=== PATIENT | male | born 2000 | race Caucasian/White ===

== ENCOUNTER 2023-11-16 11:12 | Emergency (ER) | payer OTHER, SELFPAY ==
[2023-11-16 11:26] VITALS: BP 125/72; PULSE 92; RESP 18; TEMP 36.6; O2SAT 98
--- NOTE | 2023-11-16 11:45 | ED.EAR ---
HPI - Ear Problem General Chief complaint: Ear Stated complaint: left ear/jaw pain Time Seen by Provider: 11/16/23 11:32 Source: patient and RN notes reviewed Mode of arrival: ambulatory Limitations: no limitations History of Present Illness HPI Narrative: Patient presents today complaining of left ear pain since last night with muffled hearing. Denies any additional symptoms to include cough, sore throat, congestion rhinorrhea. States he has been swimming in the [place] last weekend. Currently rates his pain 6/10 and has tried ibuprofen with some mild relief. Related Data Allergies Allergy/AdvReac Type Severity Reaction Status Date / Time Penicillins Allergy Unknown Verified 10/15/16 10:13 Cat Dander Allergy Unknown Uncoded 10/15/16 10:13 Review of Systems Review of Systems: CONSTITUTIONAL: Denies body aches, fever, chills, or sweats. EYES: Denies visual changes, redness, or discharge. ENT: Denies rhinorrhea, congestion, sore throat. + left ear pain CARDIOVASCULAR: Denies chest pain, palpitations, or edema. RESPIRATORY: Denies cough or dyspnea. GASTROINTESTINAL: Denies abdominal pain, nausea, vomiting, or diarrhea. GENITOURINARY: Denies dysuria or hematuria. SKIN: Denies rash, itching, or wounds. MUSCULOSKELETAL: Denies back pain, joint pain, or myalgia. NEUROLOGIC: Denies headache, numbness, tingling, or weakness. PSYCH: Denies depression or anxiety. [facility] Comments At time of signature, I have reviewed and agree with nursing past medical, surgical, social and family history unless otherwise noted. Please see nursing chart for further information. There is no relevant family history pertinent to the presenting complaint Exam Narrative: GENERAL: Well-appearing, well-nourished, and in no acute distress. HEAD: Normocephalic, atraumatic. EYES: EOMI. No redness or drainage. Conjunctivae normal. ENT: Mucous membranes pink and moist. Nares clear. No rhinorrhea. Left ear: Tragal tenderness and severe swelling of the ear canal. TM not visualized. See procedure note. Right ear normal. NECK: Normal AROM. CHEST: No respiratory distress. EXTREMITIES: Normal range of motion. No edema. SKIN: Warm, dry, no rash. Capillary refill normal. Normal skin turgor. NEURO: No focal deficits. Alert and oriented x3. Gait steady. PSYCH: Normal affect. No signs of depression or anxiety. Course Course Level of Care: Express Care Visit Vital Signs Vital signs: Vital Signs Temperature 97.8 F 11/16/23 11:26 Pulse Rate 92 11/16/23 11:26 Respiratory Rate 18 11/16/23 11:26 Blood Pressure 125/72 11/16/23 11:26 Pulse Oximetry 98 11/16/23 11:26 Oxygen Delivery Room Air 11/16/23 11:26 Temperature 97.8 F 11/16/23 11:26 Pulse Rate 92 11/16/23 11:26 Respiratory Rate 18 11/16/23 11:26 Blood Pressure 125/72 11/16/23 11:26 Pulse Oximetry 98 11/16/23 11:26 Oxygen Delivery Room Air 11/16/23 11:26 Reviewed Procedures Other Procedure Procedure 1: Other Procedure: An ear wick was placed in left ear using [place] forceps to open the canal. Two drops of saline were used to expand the wick. Patient tolerated procedure well. Medical Decision Making MDM Narrative Medical decision making narrative: Patient was diagnosed with left otitis externa. Ear wick placed. Prescription for Ciprodex sent to pharmacy. Anticipatory guidance given. Differential Diagnosis Differential Diagnosis: Otitis media, otitis externa, ruptured TM, serous otitis, cerumen impaction Vital Signs Vital Signs: Vital Signs Temperature 97.8 F 11/16/23 11:26 Pulse Rate 92 11/16/23 11:26 Respiratory Rate 18 11/16/23 11:26 Blood Pressure 125/72 11/16/23 11:26 Pulse Oximetry 98 11/16/23 11:26 Oxygen Delivery Room Air 11/16/23 11:26 Temperature 97.8 F 11/16/23 11:26 Pulse Rate 92 11/16/23 11:26 Respiratory Rate 18 11/16/23 11:26 Blood Pressure 125/72 05
== END 2023-11-16 11:50 | disposition home or self-care (01) ==
PROVIDERS: Emergency Provider Nurse Practitioner
DX: H60.92 Unspecified otitis externa, left ear (principal)
CPT/HCPCS: 99213; G0463

== ENCOUNTER 2023-11-17 10:16 | Emergency (ER) | payer OTHER, SELFPAY ==
[2023-11-17 10:25] VITALS: BP 147/99; PULSE 110; RESP 18; TEMP 37.2; O2SAT 98
[2023-11-17] MEDS: AZITHROMYCIN 250 MG TABLET 500 MG PO (12:44)
[2023-11-17] MEDS: OFLOXACIN 0.3% OPHTH SOLN 5 ML BTL 3 DROP EACH EAR (12:44)
[2023-11-17] MEDS: HYDROcodone/acetaminophen (*CRX) 5-325 MG TABLET 1 TAB PO (13:02)
--- NOTE | 2023-11-17 13:08 | ED.EAR ---
HPI - Ear Problem General Chief complaint: Ear Stated complaint: ear infection Time Seen by Provider: 11/17/23 11:53 History of Present Illness HPI Narrative: 23-year-old male present to the ED for evaluation for worsening left ear pain. Patient was treated for otitis externa at [facility] and started on antibiotic drops. Patient states the wick fell out and he feels worsening left ear pain. Patient has been taking ibuprofen for pain control without significant improvement. Related Data Allergies Allergy/AdvReac Type Severity Reaction Status Date / Time Penicillins Allergy Unknown Unknown Verified 11/17/23 11:25 Cat Dander Allergy Unknown Sneezing Uncoded 11/17/23 11:25 Review of Systems Review of Systems: All systems reviewed & are unremarkable except as noted in HPI and below Exam Narrative: APPEARANCE: Well appearing, no pain, no distress, well-nourished. HEAD: normocephalic, atraumatic. EYES: PERRLA/EOMI, conjunctivae clear. NOSE: Normal no drainage EARS: Left-sided otitis externa, unable to visualize TM on left, posterior auricular tenderness with no mastoid tenderness THROAT: Pharynx clear, no exudate. NECK: Supple. No adenopathy, no masses. RESPIRATORY: Airway patent, respirations nonlabored. Clear to auscultation bilaterally, no rales, rhonchi, wheezing. CARDIOVASCULAR: Regular rate and rhythm without murmurs rubs or gallops. ABDOMINAL: Soft, nontender, nondistended, normal bowel sounds MUSCULOSKELETAL: Moves all extremities. Strength/ROM intact, No edema, No calf tenderness. NEURO: Alert. Cranial nerves II through XII intact. Grossly intact SKIN: Warm, dry. Normal Color Course Vital Signs Vital signs: Vital Signs Temperature 98.9 F 11/17/23 10:25 Pulse Rate 110 H 11/17/23 10:25 Respiratory Rate 18 11/17/23 10:25 Blood Pressure 147/99 H 11/17/23 10:25 Pulse Oximetry 98 11/17/23 10:25 Temperature 98.9 F 11/17/23 10:25 Pulse Rate 110 H 11/17/23 10:25 Respiratory Rate 18 11/17/23 10:25 Blood Pressure 147/99 H 11/17/23 10:25 Pulse Oximetry 98 11/17/23 10:25 Medical Decision Making MDM Narrative Medical decision making narrative: 23-year-old male presenting the ED for evaluation for persistent otitis externa. Patient has significant otitis externa in TM is not visualized. With the complaint of worsening left ear pain patient is being started on oral antibiotics for possible otitis media. Patient is weak was replaced and patient was treated with a dose of ofloxacin and the emergency department. Patient was discharged to home with instructions to continue his home antibiotic in addition to the p.o. azithromycin. Patient was also provided additional medications for pain control. Differential Diagnosis Differential Diagnosis: Otitis externa, otitis media, mastoiditis, otalgia Vital Signs Vital Signs: Vital Signs Temperature 98.9 F 11/17/23 10:25 Pulse Rate 110 H 11/17/23 10:25 Respiratory Rate 18 11/17/23 10:25 Blood Pressure 147/99 H 11/17/23 10:25 Pulse Oximetry 98 11/17/23 10:25 Temperature 98.9 F 11/17/23 10:25 Pulse Rate 110 H 11/17/23 10:25 Respiratory Rate 18 11/17/23 10:25 Blood Pressure 147/99 H 11/17/23 10:25 Pulse Oximetry 98 11/17/23 10:25 Discharge Plan Discharge Clinical Impression: Otitis externa, Otitis media Patient Disposition: Home, Self-Care Condition: Stable Instructions: Antibiotic Form, Swimmer's Ear (AC), Ear Infection (AC) Additional Instructions: Continue your antibiotic drops as directed. Start taking the azithromycin as directed until completed. Have close follow-up with your primary care physician. Profound for pain control, Corona as needed for additional pain control. Prescriptions: New azithromycin 250 mg tablet See Rx Instructions .ROUTE .COMPLEX Qty: 6 0RF Rx Instructions: For 250 mg dose pack: take 500 mg today (day 1), then 250 mg for 4 days (days 2-5)
== END 2023-11-17 13:19 | disposition home or self-care (01) ==
PROVIDERS: Emergency Provider Emergency Medicine
DX: H60.90 Unspecified otitis externa, unspecified ear (principal); H66.90 Otitis media, unspecified, unspecified ear
CPT/HCPCS: 99283; A9270

== ENCOUNTER 2024-11-10 09:29 | Emergency (ER) | payer OTHER, SELFPAY ==
[2024-11-10 09:37] VITALS: BP 143/82; PULSE 85; RESP 16; TEMP 36.7; O2SAT 95
--- NOTE | 2024-11-10 09:45 | ED.EAR ---
HPI - Ear Problem General Chief complaint: Ear Stated complaint: Right Ear Irritation Time Seen by Provider: 11/10/24 09:45 Source: patient Mode of arrival: ambulatory Limitations: no limitations History of Present Illness HPI Narrative: Wyatt is a 24-year-old male patient presenting to the clinic today with complaints of right ear pain x1 day. [place] developed pain yesterday. States the pain is sharp and feels as though his ear is closing off. Rates his pain at 5/10. Has not taken anything for pain. No known drainage coming from the ear. States that the pain is radiating into his jaw. Related Data Allergies Allergy/AdvReac Type Severity Reaction Status Date / Time Penicillins Allergy Unknown Unknown Verified 11/10/24 09:39 Cat Dander Allergy Unknown Sneezing Uncoded 11/10/24 09:39 Review of Systems Review of Systems: Pertinent positives per HPI. Patient denies any fever, chills, rash, headache, visual changes, dizziness, cough, runny nose, sore throat, shortness of breath, chest pain, palpitations, nausea, vomiting, diarrhea, constipation, abdominal pain, or any urinary issues. [facility] Comments At the time of my signature, I reviewed and agree with the nursing past medical, surgical, social, and family history. There is no relevant family history pertinent to the patient complaint. Exam Narrative: General: Well-developed, morbidly obese, in no apparent distress Head: Normocephalic, atraumatic Eyes: Pupils equally round and reactive to light bilaterally, EOM intact, sclera and conjunctive clear, no discharge, lids normal Ears: Left TM intact and clear, left ear canal clear, no drainage, right TM intact and clear, right ear canal almost swollen shut-redness and swelling with some green mucopurulent discharge, tenderness to palpation over the tragus and pulling of the pinna, grossly hearing normal. Nose: Nares patent, no discharge, no inflammation, no sinus tenderness. Mouth: Oropharynx without lesions or masses, good dentition, MMM. Neck: Supple, trachea midline, no enlargement of anterior or posterior cervical nodes, no thyroid masses or goiter palpable. Cardio: Regular rate and rhythm, s1 and s2 normal, no murmur appreciated. Resp: Clear to auscultation bilaterally anteriorly and posteriorly, no rhonchi, rales, wheezing or rubs Course Course Emergency Course: Portions of this record may have been created with voice recognition software. Level of Care: Express Care Visit Vital Signs Vital signs: Vital Signs Temperature 36.7 C 11/10/24 09:37 Pulse Rate 85 11/10/24 09:37 Respiratory Rate 16 11/10/24 09:37 Blood Pressure 143/82 H 11/10/24 09:37 Pulse Oximetry 95 11/10/24 09:37 Oxygen Delivery Room Air 11/10/24 09:37 Temperature 36.7 C 11/10/24 09:37 Pulse Rate 85 11/10/24 09:37 Respiratory Rate 16 11/10/24 09:37 Blood Pressure 143/82 H 11/10/24 09:37 Pulse Oximetry 95 11/10/24 09:37 Oxygen Delivery Room Air 11/10/24 09:37 Vital signs reviewed Medical Decision Making MDM Narrative Medical decision making narrative: At the time of visit patient is resting comfortably on the exam table. Patient appears to be nontoxic. C/o Right ear pain x1 day. [place] developed pain yesterday. States the pain is sharp and feels as though his ear is closing off. Rates his pain at 5/10. Has not taken anything for pain. No known drainage coming from the ear. States that the pain is radiating into his jaw. On exam patient has tenderness to palpation over the tragus and pulling of the pinna as well as redness and swelling (alomst swollen shut) with some green mucopurulent discharge in the right ear canal. Ear wick was placed in the right ear canal using an alligator forceps Plan: Patient has right otitis externa. Ear wick was placed. Rx for Ciprodex sent to the pharmacy. Prescription for Ciprodex was sent to the pharmacy. Supportive measures were discussed with the patient and they voiced understanding discharge instructions and agrees to treatment plan. Return precautions reviewed Differential Diagnosis Differential Diagnosis: Otitis media, otitis sternum, eustachian tube dysfunction, cerumen impaction, upper respiratory infection, serous otitis Vital Signs Vital Signs: Vital Signs Temperature 36.7 C 11/10/24 09:37 Pulse Rate 85 11/10/24 09:37 Respiratory Rate 16 11/10/24 09:37 Blood Pressure 143/82 H 11/10/24 09:37 Pulse Oximetry 95 11/10/24 09:37 Oxygen Delivery Room Air 11/10/24 09:37 Temperature 36.7 C 11/10/24 09:37 Pulse Rate 85 11/10/24 09:37 Respiratory Rate 16 11/10/24 09:37 Blood Pressure 143/82 H 11/10/24 09:37 Pulse Oximetry 95 11/10/24 09:37 Oxygen Delivery Room Air 11/10/24 09:37 Discharge Plan Discharge Clinical Impression: Otitis externa Qualifiers: Otitis externa type: diffuse Chronicity: acute Laterality: right Qualified Code(s): H60.311 - Diffuse otitis externa, right ear Patient Disposition: Home Condition: Stable Instructions: Antibiotic Form, Mireya's Ear (ED) Additional Instructions: Ear wick placed in the right ear canal- this should fall out on its own but if it does not you can come back and have it removed after your treatment is completed Take any prescribed medications only as directed-Ciprodex Tylenol/motrin as per bottle directions as needed for pain May use heating pad to alleviate pain If you get recurrent ear infections it may be warranted to follow up with ENT. Follow up with your PCP in 3-5 days if symptoms persist. Patient Language: E[place] Prescriptions: New ciprofloxacin-dexamethasone 0.3-0.1 % drops,suspension 4 drp RIGHT EAR Q12H 7 Days Qty: 7.5 0RF No Action ciprofloxacin-dexamethasone 0.3-0.1 % drops,suspension 4 drp LEFT EAR Q12H 7 Days Qty: 7.5 0RF azithromycin 250 mg tablet See Rx Instructions .ROUTE .COMPLEX Qty: 6 0RF Rx Instructions: For 250 mg dose pack: take 500 mg today (day 1), then 250 mg for 4 days (days 2-5) hydrocodone-acetaminophen 5-325 mg tablet 1 tablet PO Q12H PRN (Reason: pain) Qty: 14 0RF Follow-up/Referrals: PHYSICIAN,ELECTION ASSISTANT [Primary Care Provider] - Stand Alone Forms: Work/School Release IP Time of Disposition: 09:52 Quality NIHSS Nursing Documentation ED NIHSS nursing documentation: reviewed/agree
== END 2024-11-10 09:56 | disposition home or self-care (01) ==
PROVIDERS: Emergency Provider Nurse Practitioner Family
DX: H60.311 Diffuse otitis externa, right ear (principal)
CPT/HCPCS: 99213; G0463